=== PATIENT | male | born 1965 | race Caucasian/White ===

== ENCOUNTER 2017-02-16 20:49 | Inpatient (IN) | payer OTHER ==
[~2017-02-16] VITALS: Ht 188 cm; Wt 94.9 kg
[2017-02-17 00:27] LABS: HEMOGLOBIN 15.6 gm/dl (14.0-17.5); RED BLOOD COUNT 5.22 M/UL (4.20-5.50); WHITE BLOOD COUNT 17.2 K/UL (4.5-11.0)
[2017-02-17 00:33] LABS: BUN/CREATININE RATIO 14 (0-10)
[2017-02-17] MEDS ORDERED: ASPIRIN325 MG PO (03:26)
[2017-02-17] MEDS ORDERED: GABAPENTIN800 MG PO (03:27)
[2017-02-17] MEDS ORDERED: ZANTAC 7575 MG PO (03:27)
[2017-02-17] MEDS ORDERED: LIPITOR TAB 2020 MG PO (03:27)
[2017-02-17] MEDS ORDERED: AMLODIPINE BESY10 MG PO (11:33)
[2017-02-17] MEDS ORDERED: OMEPRAZOLE20 MG PO (11:34)
[2017-02-17] MEDS ORDERED: LISINOPRIL40 MG PO (11:35)
[2017-02-17] MEDS ORDERED: METOPROLOL TART50 MG PO (11:36)
[2017-02-17] MEDS ORDERED: HYDROCHLOROTH12.5 MG PO (11:37)
[2017-02-18 06:51] LABS: HEMOGLOBIN 13.2 gm/dl (14.0-17.5); RED BLOOD COUNT 4.52 M/UL (4.20-5.50); WHITE BLOOD COUNT 15.8 K/UL (4.5-11.0)
[2017-02-18 07:09] LABS: BUN/CREATININE RATIO 11 (0-10)
[2017-02-19 06:54] LABS: HEMOGLOBIN 13.8 gm/dl (14.0-17.5); RED BLOOD COUNT 4.79 M/UL (4.20-5.50); WHITE BLOOD COUNT 13.3 K/UL (4.5-11.0)
[2017-02-19 07:19] LABS: BUN/CREATININE RATIO 14 (0-10)
[2017-02-20] MEDS ORDERED: VIBRAMYCIN50 MG/5 ML PO (13:55)
[2017-02-20] MEDS ORDERED: LORTAB 7.5-3251 EACH PO (13:56)
[2017-02-20] MEDS ORDERED: DAKIN'S SOLUTI500 ML TOP (13:57)
[2017-02-20] MEDS ORDERED: TYLENOL 325MG325 MG PO (13:59)
== END 2017-02-20 14:40 | disposition home or self-care (01) | DRG 854 ==
LOC: ER1 20:49 → ZEROF 02-17 00:47 → MED SURG 4 02-17 00:47
PROVIDERS: Family Medicine; Internal Medicine; Physician Assistant; ADMIT Hospitalist
PROC: 0HBMXZZ Excision of Right Foot Skin, External Approach (ICD-10-PCS; principal; 2017-02-19)
DX: A41.9 Sepsis, unspecified organism (principal); L03.115 Cellulitis of right lower limb; L02.611 Cutaneous abscess of right foot; I10 Essential (primary) hypertension; F17.210 Nicotine dependence, cigarettes, uncomplicated; E78.5 Hyperlipidemia, unspecified
CPT/HCPCS: 36415; 73630; 73718; 80053; 81001; 83036; 83605; 85025; 85027; 86140; 87040; 87070; 87077; 87081; 87186; 87205; 94640; 96361; 96374; 96375; 99283; J2270; J2405; J2543; J7030; J7050

== ENCOUNTER 2021-03-20 14:31 | Emergency (ER) | payer OTHER ==
[~2021-03-20 14:31] MED LIST: AMLODIPINE BESY10 MG PO; ASPIRIN325 MG PO; DAKIN'S SOLUTI500 ML TOP; GABAPENTIN800 MG PO; HYDROCHLOROTH12.5 MG PO; LIPITOR TAB 2020 MG PO; LISINOPRIL40 MG PO; LORTAB 7.5-3251 EACH PO; METOPROLOL TART50 MG PO; OMEPRAZOLE20 MG PO; TYLENOL 325MG325 MG PO; VIBRAMYCIN50 MG/5 ML PO; ZANTAC 7575 MG PO
[2021-03-20] MEDS ORDERED: CEPHALEXIN500 M1 PO (15:21)
[2021-03-20] MEDS ORDERED: VIBRAMYCIN 100100 MG PO (15:21)
== END 2021-03-20 15:35 | disposition home or self-care (01) ==
LOC: ER1 14:31
DX: S80.861A Insect bite (nonvenomous), right lower leg, initial encounter (principal); L03.115 Cellulitis of right lower limb; I10 Essential (primary) hypertension; F17.200 Nicotine dependence, unspecified, uncomplicated; W57.XXXA Bitten or stung by nonvenomous insect and other nonvenomous arthropods, initial encounter
CPT/HCPCS: 99281